=== PATIENT | male | born 1970 | race African-American/Black ===

== ENCOUNTER 2017-01-13 13:13 | Emergency (ER) | payer SELFPAY ==
[~2017-01-13] VITALS: Ht 170.2 cm; Wt 86.2 kg
[2017-01-13] MEDS ORDERED: HYDR-971 PO (14:13)
[2017-01-13] MEDS ORDERED: AMOX875T PO (14:13)
--- NOTE | 2017-01-13 14:13 | PHYS DOC ---
Past Medical History Past Medical History: Hypertension, Pancreatitis, Other Additional Past Medical Histor: substance abuse Past Surgical History: No Surgical History Alcohol Use: Occasionally Drug Use: Cocaine, Marijuana Adult General Chief Complaint Chief Complaint: DENTAL PROBLEM HPI HPI Patient is a 46 year old male with history of hypertension who presents with right lower gum dental pain and swelling that began this morning. Patient denies any fever. Review of Systems Review of Systems Constitutional: Denies fever or chills [] HENT: right lower gum dental pain Musculoskeletal: Denies back pain or joint pain [] Integument: Denies rash or skin lesions [] Neurologic: Denies headache, focal weakness or sensory changes [] Current Medications Current Medications Current Medications Medications (Trade) Dose Ordered Sig/Vishal Start Time Stop Time Status Last Admin Dose Admin Metoprolol Tartrate (Lopressor) 100 mg 1X ONCE 01/13/17 14:15 01/13/17 14:16 UNV Allergies Allergies Allergies Coded Allergies Type Severity Reaction Last Updated Verified No Known Drug Allergies 06/12/13 No Physical Exam Physical Exam Constitutional: Well developed, well nourished, no acute distress, non-toxic appearance. [] HENT: Normocephalic, atraumatic, bilateral external ears normal, oropharynx moist, no oral exudates, nose normal. [] Right exterior jaw is swollen. Dental caries scattered throughout his teeth and several stages. Swelling noted on the right lower gum with no erythema or fluctuance. Skin: Warm, dry, no erythema, no rash. [] Back: No tenderness, no CVA tenderness. [] Extremities: No tenderness, no cyanosis, no clubbing, ROM intact, no edema. [] Neurologic: Alert and oriented X 3, normal motor function, normal sensory function, no focal deficits noted. [] Psychologic: Affect normal, judgement normal, mood normal. [] Current Patient Data Vital Signs Vital Signs Date Time Temp Pulse Resp B/P (MAP) Pulse Ox O2 Delivery O2 Flow Rate FiO2 01/13/17 13:30 98.2 101 18 98 Room Air 98.2 EKG EKG [] Radiology/Procedures Radiology/Procedures [] Course & Med Decision Making Course & Med Decision Making Pertinent Labs and Imaging studies reviewed. (See chart for details) Patient has dental abscess, discharged with amoxicillin for 10 days and [place] for pain. Follow-up with primary care doctor and dentist in 1-2 weeks. Patient' s blood pressure was also elevated. He has not taken his metoprolol for 1 year. Given him a prescription for metoprolol. Elayne Disclaimer Elayne Disclaimer This electronic medical record was generated, in whole or in part, using a voice recognition dictation system. Departure Departure Impression: Primary Impression: Dentalgia Additional Impressions: Dental abscess Dental caries Hypertension Disposition: HOME, SELF-CARE Condition: STABLE Referrals: NO PCP (PCP) Follow-up with your dentist in 1-2 weeks Patient Instructions: Dental Abscess, Dental Caries, Hypertension Additional Instructions: You were seen for dental abscess. Ensure you complete your antibiotics. Follow- up with your dentist in one week. Ensure you take your blood pressure medicine. Ensure you follow-up with the primary care doctor for blood pressure monitoring. Scripts Metoprolol Tartrate (METOPROLOL TARTRATE) 100 Mg Tablet 1 TAB PO DAILY, #90 TAB 0 Refills Prov: MELISSA JACOBO APRN 01/13/17 Hydrocodone/Apap 5-325 (NORCO 5-325 TABLET) 1 Each Tablet 1-2 TAB PO Q4-6HRS, #10 TAB Prov: MELISSA JACOBO APRN 01/13/17 Amoxicillin (AMOXICILLIN) 875 Mg Tablet 1 TAB PO BID, #20 TAB Prov: MELISSA JACOBO APRN 01/13/17 Problem Qualifiers Additional Impressions: Hypertension Hypertension type: unspecified Qualified Codes: I10 - Essential (primary) hypertension MELISSA JACOBO APRN Jan 13, 2017 14:13
[2017-01-13] MEDS ORDERED: METOPROLOL TART IMMED RELEASE 50 MG TABLET. PO ONE (14:15)
[2017-01-13] MEDS ORDERED: METO100T2 PO (14:18)
[2017-01-13 14:31] VITALS: BP 166/122
== END 2017-01-13 14:30 | disposition home or self-care (01) ==
LOC: ER 13:13
DX: K04.7 Periapical abscess without sinus (principal); K02.9 Dental caries, unspecified; I10 Essential (primary) hypertension; F14.10 Cocaine abuse, uncomplicated; F12.10 Cannabis abuse, uncomplicated
CPT/HCPCS: 99283

== ENCOUNTER 2017-03-29 09:37 | Emergency (ER) | payer SELFPAY ==
[~2017-03-29] VITALS: Ht 172.7 cm; Wt 86.2 kg
[~2017-03-29 09:37] MED LIST: AMOX875T PO; HYDR-971 PO; METO100T7 PO
[2017-03-29] MEDS ORDERED: FAMOTIDINE 20 MG/2 ML VIAL IVP ONE (10:15)
[2017-03-29] MEDS ORDERED: ONDANSETRON PF 4 MG/2 ML VIAL. IV ONE (10:15)
[2017-03-29] MEDS ORDERED: IV NORMAL SALINE 1000ML BAG 1,000 ML IV ONE (10:15)
[2017-03-29] MEDS ORDERED: MORPHINE SULFATE 10 MG/ML VIAL. IV ONE (10:15)
[2017-03-29 10:25] LABS: BILIRUBIN,URINE NEGATIVE (NEG); GLUCOSE,URINE NEGATIVE (NEG); NITRITE,URINE NEGATIVE (NEG); PROTEIN,URINE NEGATIVE (NEG-TRACE); UROBILINOGEN,URINE 0.2 mg/dL (0.2 mg/dL)
[2017-03-29 10:27] LABS: BASO # 0.1 x10^3/uL (0.0-0.2); BASO % 1 % (0-3); EOS % 2 % (0-3); HEMATOCRIT 47.1 % (39.0-53.0); HEMOGLOBIN 15.6 g/dL (13.0-17.5); LYMPH # 1.7 x10^3/uL (1.0-4.8); LYMPH % 15 % (24-48); MEAN CORPUSCULAR HEMOGLOBIN 28 pg (25-35); MEAN CORPUSCULAR HGB CONC 33 g/dL (31-37); MEAN CORPUSCULAR VOLUME 83 fL (79-100); MONO % 8 % (0-9); NEUT % 74 % (31-73); PLATELET COUNT 319 x10^3/uL (140-400); RED BLOOD COUNT 5.65 x10^6/uL (4.30-5.70); RED CELL DISTRIBUTION WIDTH 15.5 % (11.5-14.5); WHITE BLOOD COUNT 11.4 x10^3/uL (4.0-11.0)
[2017-03-29] MEDS ORDERED: IOHEXOL 300 MG/ML 100ML VIAL. IV ONE (10:30)
[2017-03-29] MEDS ORDERED: CONTRAST GIVEN MC PRN (10:30)
[2017-03-29 10:32] LABS: BACTERIA,URINE FEW /HPF (0-FEW); RBC,URINE TNTC /HPF (0-2); WBC,URINE 0 /HPF (0-4)
[2017-03-29 10:42] LABS: BARBITURATES NEG (NEG); BENZODIAZEPINES NEG (NEG); CANNABINOIDS POS (NEG); COCAINE POS (NEG); METHADONE NEG (NEG); OPIATES NEG (NEG); PHENCYCLIDINE NEG (NEG)
[2017-03-29 10:46] LABS: CALCIUM 8.3 mg/dL (8.5-10.1); CREATININE 1.5 mg/dL (0.7-1.3); POTASSIUM 4.1 mmol/L (3.5-5.1)
[2017-03-29 10:51] LABS: ALBUMIN 3.7 g/dL (3.4-5.0); ALBUMIN/GLOBULIN RATIO 0.9 (1.0-1.7); TOTAL BILIRUBIN 0.3 mg/dL (0.2-1.0)
[2017-03-29] MEDS ORDERED: HYDROmorphone 2 MG/ML VIAL IV ONE ×2 (11:45→14:15)
--- NOTE | 2017-03-29 12:15 | RAD ---
CT of the abdomen and pelvis with contrast, 03/29/2017: History: Abdominal pain, history pancreatitis Multidetector CT imaging was performed following an IV bolus injection of iodinated contrast material. No oral contrast material was administered for this study. Comparison is made to an exam from 09/18/2013. There is mild atelectasis and/or scarring posteriorly in the lung bases. No hepatic abnormality is detected. No dense gallstones are seen. The pancreatic head is at the upper limits of normal in size, but unchanged since 2013. No peripancreatic inflammation is seen. The spleen is of normal size. The renal nephrograms are slightly asymmetric. There is mild dilatation of the left renal pelvis and left ureter. There is a 3 mm radiopacity along the posterior wall of the urinary bladder at the level of the left ureterovesical, junction compatible with an obstructing calculus. The kidneys are otherwise unremarkable. There is moderate aortoiliac calcific plaquing without evidence of aneurysm. No abdominal or pelvic adenopathy is seen. The bowel loops are not dilated. A portion of the appendix is visualized and it shows no abnormality. No free air or free fluid is evident in the abdomen or pelvis. Moderate degenerative disc disease is present at L5-S1. IMPRESSION: Small obstructing calculus at the left ureterovesical junction. PQRS Compliance Statement: One or more of the following individualized dose reduction techniques were utilized for this examination: 1. Automated exposure control 2. Adjustment of the mA and/or kV according to patient size 3. Use of iterative reconstruction technique
[2017-03-29] MEDS ORDERED: TAMSULOSIN 0.4 MG CAP.ER.24H. PO ONE (14:15)
--- NOTE | 2017-03-29 14:28 | PHYS DOC ---
Past Medical History Past Medical History: Hypertension, Pancreatitis, Other Additional Past Medical Histor: substance abuse Past Surgical History: No Surgical History Alcohol Use: Occasionally Additional Information: "three times a week" Drug Use: Cocaine, Marijuana Adult General Chief Complaint Chief Complaint: ABDOMINAL PAIN HPI HPI Patient is a 46 year old male with history of hypertension and alcohol-induced pancreatitis who presents today complaining of left-sided abdominal pain that began yesterday. Is also complaining of vomiting times one this morning. Patient denies any fever. He states he had a couple beers last night approximately 3 bottles. Review of Systems Review of Systems Constitutional: Denies fever or chills [] Eyes: Denies change in visual acuity, redness, or eye pain [] HENT: Denies nasal congestion or sore throat [] Respiratory: Denies cough or shortness of breath [] Cardiovascular: No additional information not addressed in HPI [] GI: Reports left-sided abdominal pain with vomiting, denies bloody stools or diarrhea [] : Denies dysuria or hematuria [] Musculoskeletal: Denies back pain or joint pain [] Integument: Denies rash or skin lesions [] Neurologic: Denies headache, focal weakness or sensory changes [] All other systems were reviewed and found to be within normal limits, except as documented in this note. Current Medications Current Medications Current Medications Medications (Trade) Dose Ordered Sig/Vishal Start Time Stop Time Status Last Admin Dose Admin Famotidine (Pepcid Vial) 20 mg 1X ONCE 03/29/17 10:15 03/29/17 10:17 DC 03/29/17 10:31 20 MG Hydromorphone HCl (Dilaudid) 1 mg 1X ONCE 03/29/17 14:15 03/29/17 14:16 DC 03/29/17 14:21 1 MG Info (Do NOT chart on this entry -- for MONITORING) 1 each PRN DAILY PRN 03/29/17 10:30 03/31/17 10:29 Iohexol (Omnipaque 300 Mg/ml) 75 ml 1X ONCE 03/29/17 10:30 03/29/17 10:31 DC 03/29/17 11:24 75 ML Morphine Sulfate 5 mg 1X ONCE 03/29/17 10:15 03/29/17 10:17 DC 03/29/17 10:33 5 MG Ondansetron HCl (Zofran) 4 mg 1X ONCE 03/29/17 10:15 03/29/17 10:17 DC 03/29/17 10:32 4 MG Sodium Chloride 1,000 ml @ 1,000 mls/hr 1X ONCE 03/29/17 10:15 03/29/17 11:14 DC 03/29/17 10:30 1,000 MLS/HR Tamsulosin HCl (Flomax) 0.4 mg 1X ONCE 03/29/17 14:15 03/29/17 14:16 DC 03/29/17 14:22 0.4 MG Allergies Allergies Allergies Coded Allergies Type Severity Reaction Last Updated Verified No Known Drug Allergies 03/29/17 No Physical Exam Physical Exam Constitutional: Well developed, well nourished, no acute distress, non-toxic appearance. [] HENT: Normocephalic, atraumatic, bilateral external ears normal, oropharynx moist, no oral exudates, nose normal. [] Eyes: PERRLA, EOMI, conjunctiva normal, no discharge. [] Neck: Normal range of motion, no tenderness, supple, no stridor. [] Cardiovascular:Heart rate regular rhythm, no murmur [] Lungs & Thorax: Bilateral breath sounds clear to auscultation [] Abdomen: Bowel sounds normal, soft, diffuse tenderness to the left side of the abdomen. No right upper or right lower quadrant tenderness, no guarding no rebound pain or tenderness, no masses, no pulsatile masses. [] Skin: Warm, dry, no erythema, no rash. [] Back: No tenderness, no CVA tenderness. [] Extremities: No tenderness, no cyanosis, no clubbing, ROM intact, no edema. [] Neurologic: Alert and oriented X 3, normal motor function, normal sensory function, no focal deficits noted. [] Psychologic: Affect normal, judgement normal, mood normal. [] Current Patient Data Vital Signs Vital Signs Date Time Temp Pulse Resp B/P (MAP) Pulse Ox O2 Delivery O2 Flow Rate FiO2 03/29/17 14:21 20 100 Room Air 03/29/17 10:58 72 180/116 (137) 03/29/17 09:50 98.3 98.3 Lab Values Laboratory Tests Test 03/29/17 09:45 03/29/17 10:15 Urine Collection Type Unknown Urine Color Yellow Urine Clarity Clear Urine pH 7.0 Urine Specific [place] 1.015 Urine Protein Negative mg/dL (NEG-TRACE) Urine Glucose (UA) Negative mg/dL (NEG) Urine Ketones (Stick) Negative mg/dL (NEG) Urine Blood Large (NEG) Urine Nitrite Negative (NEG) Urine Bilirubin Negative (NEG) Urine Urobilinogen Dipstick 0.2 mg/dL (0.2 mg/dL) Urine Leukocyte Esterase Small (NEG) Urine RBC Tntc /HPF (0-2) Urine WBC 0 /HPF (0-4) Urine Bacteria Few /HPF (0-FEW) Urine Opiates Screen Neg (NEG) Urine Methadone Screen Neg (NEG) Urine Barbiturates Neg (NEG) Urine Phencyclidine Screen Neg (NEG) Urine Amphetamine/Methamphetamine Neg (NEG) Urine Benzodiazepines Screen Neg (NEG) Urine Cocaine Screen Pos (NEG) Urine Cannabinoids Screen Pos (NEG) Urine Ethyl Alcohol Neg (NEG) White Blood Count 11.4 x10^3/uL (4.0-11.0) H Red Blood Count 5.65 x10^6/uL (4.30-5.70) Hemoglobin 15.6 g/dL (13.0-17.5) Hematocrit 47.1 % (39.0-53.0) Mean Corpuscular Volume 83 fL (79-100) Mean Corpuscular Hemoglobin 28 pg (25-35) Mean Corpuscular Hemoglobin Concent 33 g/dL (31-37) Red Cell Distribution Width 15.5 % (11.5-14.5) H Platelet Count 319 x10^3/uL (140-400) Neutrophils (%) (Auto) 74 % (31-73) H Lymphocytes (%) (Auto) 15 % (24-48) L Monocytes (%) (Auto) 8 % (0-9) Eosinophils (%) (Auto) 2 % (0-3) Basophils (%) (Auto) 1 % (0-3) Neutrophils # (Auto) 8.5 x10^3uL (1.8-7.7) H Lymphocytes # (Auto) 1.7 x10^3/uL (1.0-4.8) Monocytes # (Auto) 0.9 x10^3/uL (0.0-1.1) Eosinophils # (Auto) 0.2 x10^3/uL (0.0-0.7) Basophils # (Auto) 0.1 x10^3/uL (0.0-0.2) Sodium Level 141 mmol/L (136-145) Potassium Level 4.1 mmol/L (3.5-5.1) Chloride Level 105 mmol/L (98-107) Carbon Dioxide Level 23 mmol/L (21-32) Anion Gap 13 (6-14) Blood Urea Nitrogen 16 mg/dL (8-26) Creatinine 1.5 mg/dL (0.7-1.3) H Estimated GFR (Cockcroft-Gault) 61.0 BUN/Creatinine Ratio 11 (6-20) Glucose Level 95 mg/dL (70-99) Calcium Level 8.3 mg/dL (8.5-10.1) L Total Bilirubin 0.3 mg/dL (0.2-1.0) Aspartate Amino Transferase (AST) 23 U/L (15-37) Alanine Aminotransferase (ALT) 25 U/L (16-63) Alkaline Phosphatase 70 U/L (46-116) Total Protein 8.0 g/dL (6.4-8.2) Albumin 3.7 g/dL (3.4-5.0) Albumin/Globulin Ratio 0.9 (1.0-1.7) L Lipase 107 U/L (73-393) Ethyl Alcohol Level < 10 mg/dL (0-10) Laboratory Tests 03/29/17 10:15 Laboratory Tests 03/29/17 10:15 EKG EKG [] Radiology/Procedures Radiology/Procedures []PROCEDURE: CT ABD PELV W/ IV CONTRST ONLY CT of the abdomen and pelvis with contrast, 03/29/2017: History: Abdominal pain, history pancreatitis Multidetector CT imaging was performed following an IV bolus injection of iodinated contrast material. No oral contrast material was administered for this study. Comparison is made to an exam from 09/18/2013. There is mild atelectasis and/or scarring posteriorly in the lung bases. No hepatic abnormality is detected. No dense gallstones are seen. The pancreatic head is at the upper limits of normal in size, but unchanged since 2013. No peripancreatic inflammation is seen. The spleen is of normal size. The renal nephrograms are slightly asymmetric. There is mild dilatation of the left renal pelvis and left ureter. There is a 3 mm radiopacity along the posterior wall of the urinary bladder at the level of the left ureterovesical, junction compatible with an obstructing calculus. The kidneys are otherwise unremarkable. There is moderate aortoiliac calcific plaquing without evidence of aneurysm. No abdominal or pelvic adenopathy is seen. The bowel loops are not dilated. A portion of the appendix is visualized and it shows no abnormality. No free air or free fluid is evident in the abdomen or pelvis. Moderate degenerative disc disease is present at L5-S1. IMPRESSION: Small obstructing calculus at the left ureterovesical junction. PQRS Compliance Statement: One or more of the following individualized dose reduction techniques were utilized for this examination: 1. Automated exposure control 2. Adjustment of the mA and/or kV according to patient size 3. Use of iterative reconstruction technique DICTATED and SIGNED BY: JERAMIE BLANCAS MD DATE: 03/29/17 1203 CC: LACI GALEANO MD; MELISSA JACOBO APRN; NO PCP ~ Course & Med Decision Making Course & Med Decision Making Pertinent Labs and Imaging studies reviewed. (See chart for details) This is a 46-year-old male patient with history of alcohol-induced palpitate is a presents today with left-sided abdominal pain and vomiting once. Urine positive for large amount of blood, urine also positive for small amount of leukocytes. CBC with a WBC of 11.4, CMP with creatinine of 1.5 with normal BUN patient was hydrated in the ED. CT of the abdomen and pelvic was noted for Small obstructing calculus at the left ureterovesical junction. Patient's pain is well-controlled in the ED and he is interested in being discharged. Given RX for Flomax hydrocodone, Cipro and Flomax. Provided [facility] for follow-up. Instructed to return to the ED at any point symptoms worsen. Discharged in stable condition. Dragon Disclaimer Dragon Disclaimer This electronic medical record was generated, in whole or in part, using a voice recognition dictation system. Departure Departure Impression: Primary Impression: Hypertension Additional Impressions: Pyelonephritis Kidney stone Disposition: HOME, SELF-CARE Condition: STABLE Referrals: NO PCP (PCP) Follow-up with [facility] in the next 1-3 days. The phone number is [phone]. Follow-up with your primary care doctor in the next 3-7 days. Patient Instructions: Hypertension, Kidney Stones, Pyelonephritis, Adult, Easy- to-Read Additional Instructions: Your CT scan shows you have a kidney stone. He also have kidney infection. Take the prescribed antibiotics until completed. Take the pain medicine as needed for pain. Do not drive or operate machinery on the pain medicine. Follow-up with the [facility] urology group as soon as you can as well as your primary care doctor for hypertension. Consider getting help for alcohol abuse. Scripts Promethazine Hcl (PROMETHAZINE HCL) 25 Mg Tablet 1 TAB PO PRN Q6HRS, #20 TAB Prov: MELISSA JACOBO APRN 03/29/17 Tamsulosin Hcl (FLOMAX) 0.4 Mg Cap.er.24h 1 CAP PO DAILY, #7 CAP 0 Refills Prov: MELISSA JACOBO APRN 03/29/17 Hydrocodone/Apap 5-325 (NORCO 5-325 TABLET) 1 Each Tablet 1-2 TAB PO Q4-6HRS Y for PAIN, #20 TAB Prov: MELISSA JACOBO APRN 03/29/17 Ciprofloxacin Hcl (CIPRO) 500 Mg Tablet 1 TAB PO BID, #14 TAB Prov: MELISSA JACOBO APRN 03/29/17 Problem Qualifiers Primary Impression: Hypertension Hypertension type: unspecified Qualified Codes: I10 - Essential (primary) hypertension MELISSA JACOBO APRN Mar 29, 2017 14:28
[2017-03-29] MEDS ORDERED: TAMS0.4C97 PO (14:35)
[2017-03-29] MEDS ORDERED: CIPR500T94 PO (14:35)
[2017-03-29] MEDS ORDERED: HYDR-971 PO (14:35)
[2017-03-29] MEDS ORDERED: PROM25TA10 PO (14:35)
[2017-03-29 14:38] VITALS: BP 173/100
== END 2017-03-29 15:11 | disposition home or self-care (01) ==
LOC: ER 09:37
DX: N20.0 Calculus of kidney (principal); I10 Essential (primary) hypertension; F12.10 Cannabis abuse, uncomplicated; F14.10 Cocaine abuse, uncomplicated
CPT/HCPCS: 36415; 74177; 80053; 80307; 81001; 83690; 85025; 87086; 96361; 96374; 96375; 96376; 99285; G0480; J1170; J2270; J2405; J7030; Q9967; S0028; G0479